=== PATIENT | female | born 1950 | race Caucasian/White ===

== ENCOUNTER 2020-05-14 07:32 | Outpatient (CLI) | payer MEDICARE, OTHER ==
[2020-05-15 11:51] LABS: SARS-CoV-2 MS2 Positive; SARS-CoV-2 N Gene Negative; SARS-CoV-2 S Gene Negative; SARS-CoV-2 by NAA Not Detected (NotDetected); SARS-CoV-2 orf1ab Negative
== END 2020-05-14 07:33 | disposition home or self-care (01) ==
LOC: LABBT 07:32
PROVIDERS: ATTEND Plastic Surgery
DX: Z20.828 Contact with and (suspected) exposure to other viral communicable diseases (principal)
CPT/HCPCS: 87635; U0003

== ENCOUNTER 2020-05-16 10:29 | Day surgery (SDC) | payer MEDICARE, OTHER ==
[~2020-05-16 10:29] MED LIST: Dexamethasone 20 MG/5 ML VIAL ONE; Lidocaine 1% PF 5 ML VIAL ONE; Ondansetron PF 4 MG/2 ML Vial ONE; PROPOFOL 200 MG/20 ML VIAL ONE
[2020-05-16] MEDS ORDERED: EPINEPHrine 1 MG/ML AMP ONE (11:09)
[2020-05-16] MEDS ORDERED: Mineral Oil Sterile 10ML 10 ML UDCUP ONE ×2 (11:09)
[2020-05-16] MEDS ORDERED: Bupivacaine/Epinephrine 0.25% 30 ML VIAL ONE (11:09)
[2020-05-16] MEDS ORDERED: Fentanyl 100 MCG/2 ML VIAL ONE (11:57)
[2020-05-16] MEDS ORDERED: Morphine Sulfate 2 MG/ML SYRINGE SLOW IVP PRN (13:49)
[2020-05-16] MEDS ORDERED: Ondansetron HCl/PF 4 MG/2 ML Vial IVP PRN (13:49)
[2020-05-16] MEDS ORDERED: Promethazine HCl 25 MG/ML VIAL IM PRN (13:49)
[2020-05-16] MEDS ORDERED: Meperidine HCl/PF 25 MG/ML VIAL SLOW IVP PRN (13:49)
[2020-05-16] MEDS ORDERED: Promethazine HCl 25 MG/ML VIAL SLOW IVP PRN (13:49)
--- NOTE | 2020-05-18 19:17 | OP ---
DATE OF PROCEDURE: 05/16/2020 PREOPERATIVE DIAGNOSIS: Melanoma, left leg. POSTOPERATIVE DIAGNOSIS: Melanoma, left leg. PROCEDURE PERFORMED: 1. Wide excision melanoma, left leg (3.5 cm including adequate margins) (49165). 2. Split-thickness skin graft of left leg (15 sq cm ) (09292). DESCRIPTION OF PROCEDURE: Following induction of adequate anesthesia, the patient was prepped and draped in the usual sterile fashion in the supine position. Attention was turned to her left leg. The lesion was widely excised with adequate margins down to fascia. The field was copiously irrigated. The defect cannot be closed primarily. A split-thickness skin graft was harvested from the ipsilateral thigh and meshed at 1.5 to 1. It was secured to the wound with 3-0 Prolene suture. A dressing was placed on the donor site. A vacuum assisted device was placed on the graft to improve survival of the skin graft. The patient tolerated the procedure well. Job ID: [id number]
== END 2020-05-16 15:10 | disposition home or self-care (01) ==
LOC: SDC 10:29
PROVIDERS: ATTEND Plastic Surgery
PROC: 0HRLX74 Replacement of Left Lower Leg Skin with Autologous Tissue Substitute, Partial Thickness, External Approach (ICD-10-PCS; principal; 2020-05-16)
DX: C43.72 Malignant melanoma of left lower limb, including hip (principal); E03.9 Hypothyroidism, unspecified; I10 Essential (primary) hypertension; Z79.899 Other long term (current) drug therapy; Z88.0 Allergy status to penicillin
CPT/HCPCS: 88305; 88342; J0171; J0690; J1100; J2405; J2704; J3010

== ENCOUNTER 2023-10-17 11:58 | Outpatient (CLI) | payer MEDICARE, OTHER | END 2023-10-17 11:59 | disposition home or self-care (01) | LOC: ULT 11:58 | PROVIDERS: ATTEND Physician Assistant Medical | DX: R10.13 Epigastric pain (principal); K82.8 Other specified diseases of gallbladder | CPT/HCPCS: 76705 ==